=== PATIENT | female | born 1965 | race Asian ===

== ENCOUNTER 2022-01-17 09:25 | Day surgery (SDC) | payer BC ==
[2022-01-15 16:43] VITALS: BMI 18.9
[2022-01-17] MEDS: PHENYLEPHRINE 2.5% OPHTH SOLN 15 ML BOTTLE ONE ×3 (10:10→10:20)
[2022-01-17] MEDS: CIPROFLOXACIN 0.3% EYE DROPS 5 ML BOTTLE ONE ×3 (10:10→10:20)
[2022-01-17] MEDS: TROPICAMIDE 1% OPHTH SOLN 15 ML BOTTLE ONE ×3 (10:10→10:20)
[2022-01-17] MEDS: CYCLOPENTOLATE 2% OPHTH SOLN 2 ML BOTTLE ONE ×3 (10:10→10:20)
[2022-01-17] MEDS ORDERED: BSS (NA/CA/MG/K) BALANCED SALT SOLUTION OPHTH SOLN 15 ML BOTTLE ONE (10:24)
[2022-01-17] MEDS ORDERED: CARBACHOL 0.01% INTRA-OCULAR 1.5 ML VIAL ONE (10:24)
[2022-01-17] MEDS ORDERED: NEO/POLYMYX B SULF/DEXAMETH OPHTHALMIC 5ML BOTTLE ONE (10:24)
[2022-01-17] MEDS ORDERED: TETRACAINE 0.5% OPHTH SOLN 2 ML BOTTLE ONE (10:24)
[2022-01-17] MEDS ORDERED: MIDAZOLAM HCL 2 MG/2 ML SINGLE DOSE VIAL ONE (11:29)
[2022-01-17 12:19] VITALS: RESP 18; TEMP 97.6
[2022-01-17 12:51] VITALS: BP 100/62; PULSE 72
== END 2022-01-17 12:40 | disposition home or self-care (01) ==
LOC: FASU 09:25
PROVIDERS: ATTEND Ophthalmology
PROC: 08RK3JZ Replacement of Left Lens with Synthetic Substitute, Percutaneous Approach (ICD-10-PCS; principal; 2022-01-17 11:39)
DX: H26.8 Other specified cataract (principal)
CPT/HCPCS: 66984; V2632

== ENCOUNTER → 2022-02-28 | Day surgery (SDC) | payer BC ==
[2022-02-21 16:03] VITALS: BMI 18.9
[~2022-02-28] MED LIST: BSS (NA/CA/MG/K) BALANCED SALT SOLUTION OPHTH SOLN 15 ML BOTTLE ONE; CARBACHOL 0.01% INTRA-OCULAR 1.5 ML VIAL ONE; CIPROFLOXACIN 0.3% EYE DROPS 5 ML BOTTLE OD ONE; CIPROFLOXACIN 0.3% EYE DROPS 5 ML BOTTLE ONE; CYCLOPENTOLATE 2% OPHTH SOLN 2 ML BOTTLE OD ONE; CYCLOPENTOLATE 2% OPHTH SOLN 2 ML BOTTLE ONE; MIDAZOLAM HCL 2 MG/2 ML SINGLE DOSE VIAL ONE; NEO/POLYMYX B SULF/DEXAMETH OPHTHALMIC 5ML BOTTLE ONE; PHENYLEPHRINE 2.5% OPHTH SOLN 15 ML BOTTLE OD ONE; PHENYLEPHRINE 2.5% OPHTH SOLN 15 ML BOTTLE ONE; TETRACAINE 0.5% OPHTH SOLN 2 ML BOTTLE ONE; TROPICAMIDE 1% OPHTH SOLN 15 ML BOTTLE OD ONE; TROPICAMIDE 1% OPHTH SOLN 15 ML BOTTLE ONE
[2022-02-28 11:22] VITALS: RESP 16
[2022-02-28 13:12] VITALS: TEMP 97.8
[2022-02-28 13:21] VITALS: BP 106/67; PULSE 80
== END | disposition home or self-care (01) ==
LOC: FASU 09:31
PROVIDERS: ATTEND Ophthalmology
PROC: 08RJ3JZ Replacement of Right Lens with Synthetic Substitute, Percutaneous Approach (ICD-10-PCS; principal; 2022-02-28 12:42)
DX: H26.8 Other specified cataract (principal)
CPT/HCPCS: 66984; V2632